=== PATIENT | female | born 1970 | race Caucasian/White ===

== ENCOUNTER 2017-10-22 10:11 | Outpatient (CLI) | payer OTHER | END 2017-10-22 10:12 | disposition home or self-care (01) | LOC: BICMAMMO 10:11 | PROVIDERS: ATTEND Nurse Practitioner Family | DX: Z12.31 Encounter for screening mammogram for malignant neoplasm of breast (principal); Z80.3 Family history of malignant neoplasm of breast | CPT/HCPCS: 77063; 77067 ==

== ENCOUNTER 2018-11-14 09:33 | Outpatient (CLI) | payer BC ==
--- NOTE | 2018-11-16 11:11 | MMO ---
Bilateral MAMMO Bilat Screen [facility]. CLINICAL HISTORY: Patient is 48 years old and is seen for screening. The patient has the following family history of breast cancer: cousin female, at age 43. The patient has no personal history of cancer. VIEWS: The views performed were: bilateral craniocaudal with tomosynthesis; bilateral mediolateral oblique with tomosynthesis; and bilateral exaggerated craniocaudal. FILMS COMPARED: The present examination has been compared to prior imaging studies performed at [facility] on 09/18/2011, 01/16/2013, 03/08/2014, 05/17/2015, 07/31/2016 and 10/22/2017. MAMMOGRAM FINDINGS: The breasts are heterogeneously dense, which could obscure a lesion on mammography. There is a new oval mass measuring 10 millimeters seen in the anterior sub-areolar region of the right breast. In the left breast, there are no suspicious masses, calcifications or areas of architectural distortion. IMPRESSION: NEW MASS IN THE RIGHT BREAST REQUIRES ADDITIONAL EVALUATION. AN ULTRASOUND EXAM IS RECOMMENDED. THE RESULTS OF THIS EXAM WERE SENT TO THE PATIENT. ACR BI-RADS Category 0 - Incomplete: Need additional imaging evaluation. [facility] will notify the patient of the need for additional imaging services. MAMMOGRAPHY NOTE: 1. A negative mammogram report should not delay a biopsy if a dominant of clinically suspicious mass is present. 2. Approximately 10% to 15% of breast cancers are not detected by mammography. 3. Adenosis and dense breasts may obscure an underlying neoplasm.
== END 2018-11-14 09:34 | disposition home or self-care (01) ==
LOC: BICMAMMO 09:33
PROVIDERS: ATTEND Nurse Practitioner Family
DX: Z12.31 Encounter for screening mammogram for malignant neoplasm of breast (principal); N63.10 Unspecified lump in the right breast, unspecified quadrant
CPT/HCPCS: 77063; 77067

== ENCOUNTER 2018-11-16 13:51 | Outpatient (CLI) | payer BC ==
--- NOTE | 2018-11-16 14:44 | ULT ---
RIGHT BREAST ULTRASOUND: Date: 11/16/18 COMPARISON: Mammogram dated 11/14/18. HISTORY: Well circumscribed lesion seen in the subareolar region of the right breast on screening mammography. TECHNIQUE: Multiplanar Burden scale and color Doppler images were obtained in a targeted ultrasound of the subareo lar region of the right breast. FINDINGS: There is a well circumscribed anechoic cyst measuring 8.0 mm in greatest dimension. This corresponds to the mammographic abnormality and represents a simple cyst. No suspicious mass or shadowing is seen . IMPRESSION: BIRADS Category 2 - Benign findings. Annual screening mammography is recommended. POS: [facility]
== END 2018-11-16 13:52 | disposition home or self-care (01) ==
LOC: BICULT 13:51
PROVIDERS: ATTEND Nurse Practitioner Family
DX: N63.41 Unspecified lump in right breast, subareolar (principal); Z80.3 Family history of malignant neoplasm of breast

== ENCOUNTER 2021-03-20 09:37 | Outpatient (CLI) | payer BC | END 2021-03-20 09:38 | disposition home or self-care (01) | LOC: BICMAMMO 09:37 | PROVIDERS: ATTEND Nurse Practitioner Family | DX: Z12.31 Encounter for screening mammogram for malignant neoplasm of breast (principal); Z80.3 Family history of malignant neoplasm of breast | CPT/HCPCS: 77063; 77067 ==

== ENCOUNTER 2023-10-09 15:43 | Outpatient (CLI) | payer BC | END 2023-10-09 15:44 | disposition home or self-care (01) | LOC: RAD 15:43 | PROVIDERS: ATTEND Nurse Practitioner Family | DX: M25.531 Pain in right wrist (principal); S52.611A Displaced fracture of right ulna styloid process, initial encounter for closed fracture; S52.571A Other intraarticular fracture of lower end of right radius, initial encounter for closed fracture; M79.89 Other specified soft tissue disorders ==

== ENCOUNTER 2023-10-15 07:55 | Day surgery (SDC) | payer BC ==
[2023-10-15] MEDS ORDERED: Sodium Chloride 0.9% 100 ML ONE (09:19)
[2023-10-15] MEDS ORDERED: CEFAZOLIN 2 GM VIAL ONE (09:19)
[2023-10-15] MEDS ORDERED: Bupivacaine PF 0.5% 30 ML VIAL ONE ×2 (10:53→11:06)
[2023-10-15] MEDS ORDERED: Midazolam HCl 2 mg/2 ml Vial ONE (10:53)
[2023-10-15] MEDS ORDERED: fentaNYL 50 mcg/mL 1 mL Vial ONE (10:53)
[2023-10-15] MEDS ORDERED: Fentanyl 250 MCG/5 ML VIAL ONE (11:00)
[2023-10-15] MEDS ORDERED: PROPOFOL 40 ML ONE (11:00)
[2023-10-15] MEDS ORDERED: EPINEPHrine 1 MG/ML VIAL ONE (11:05)
[2023-10-15] MEDS ORDERED: Dexamethasone 4 mg/ml Vial ONE (11:15)
[2023-10-15] MEDS ORDERED: Ondansetron PF 4 MG/2 ML Vial ONE (11:15)
[2023-10-15] MEDS ORDERED: ePHEDrine Sulfate 50 MG/10 ML VIAL ONE (11:41)
== END 2023-10-15 13:45 | disposition home or self-care (01) ==
LOC: SDC 07:55
PROVIDERS: ATTEND Orthopaedic Surgery
PROC: 0PSH04Z Reposition Right Radius with Internal Fixation Device, Open Approach (ICD-10-PCS; principal; 2023-10-15)
DX: S52.571A Other intraarticular fracture of lower end of right radius, initial encounter for closed fracture (principal); I10 Essential (primary) hypertension; F41.9 Anxiety disorder, unspecified; Z79.899 Other long term (current) drug therapy; W19.XXXA Unspecified fall, initial encounter
CPT/HCPCS: 93005; 93010; C1713; J0171; J0665; J1100; J2250; J2405; J2704; J3010; J3490